=== PATIENT | female | born 1990 | race Caucasian/White ===

== ENCOUNTER → 2016-06-11 | Outpatient (CLI) | payer OTHER ==
[2016-06-11 15:18] LABS: HEMATOCRIT 37.4 % (37.0-47.0); HEMOGLOBIN 12.5 g/dL (12.0-16.0); MEAN CORPUSCULAR HEMOGLOBIN 29.8 PG (27-31); MEAN CORPUSCULAR HGB CONC 33.4 g/dL (33-37); MEAN PLATELET VOLUME 10.1 FL (7.4-12.2); RDW COEFFICIENT OF VARIATION 12.3 % (11.5-14.5); RED BLOOD COUNT 4.19 10^6/uL (4.20-5.40)
[2016-06-11 15:40] LABS: ASPARTATE AMINO TRANSFERASE 21 IU/L (8-39); BILIRUBIN,TOTAL 0.5 mg/dL (0.3-1.2); BLOOD UREA NITROGEN 6 mg/dL (7-22); BUN/CREATININE RATIO 8.57 (6-20); CALCIUM 8.8 mg/dL (8.7-10.7); CHLORIDE 103 meq/L (98-112); CREATININE 0.7 mg/dL (0.50-1.20); EST GLOMERULAR FILTRATION > 60 (>60 ml/min/1.73m(2)); GLUCOSE 65 mg/dL (78-110); POTASSIUM 3.6 meq/L (3.8-5.2); SODIUM 137 meq/L (135-145); TOTAL PROTEIN 7.1 g/dL (6.1-8.0)
== END ==
LOC: LAB 15:03
PROVIDERS: ATTEND Family Medicine
DX: O26.892 Other specified pregnancy related conditions, second trimester (principal); R51 Headache; Z3A.26 26 weeks gestation of pregnancy
CPT/HCPCS: 36415; 80053; 84443; 85027

== ENCOUNTER → 2016-06-13 | Outpatient (CLI) | payer OTHER ==
[2016-06-13 09:38] LABS: 24 HOUR URINE PROTEIN CONCENTR 9 mg/dL; 24 HOUR URINE TOTAL VOLUME 1975 ML; 24 HR URINE PROTEIN 177 mg/DAY (42-225)
== END ==
LOC: LAB 08:48
PROVIDERS: ATTEND Family Medicine
DX: O26.892 Other specified pregnancy related conditions, second trimester (principal); R51 Headache; Z3A.26 26 weeks gestation of pregnancy
CPT/HCPCS: 84156

== ENCOUNTER → 2016-06-22 | Outpatient (CLI) | payer OTHER | LOC: LAB 08:06 | PROVIDERS: ATTEND Family Medicine | DX: Z36 Encounter for antenatal screening of mother (principal); Z3A.28 28 weeks gestation of pregnancy | CPT/HCPCS: 36415; 82950 ==

== ENCOUNTER → 2016-08-12 | Outpatient (CLI) | payer OTHER | LOC: MOB LAB 10:16 | PROVIDERS: ATTEND Family Medicine | DX: Z36 Encounter for antenatal screening of mother (principal); Z3A.36 36 weeks gestation of pregnancy | CPT/HCPCS: 87150 ==

== ENCOUNTER 2016-08-19 11:12 | Outpatient (CLI) | payer OTHER ==
[2016-08-19] MEDS ORDERED: NORMAL SALINE 10 ML SYRINGE FLUSH IVP PRN (11:26)
[2016-08-19 11:51] LABS: HEMATOCRIT 37.2 % (37.0-47.0); HEMOGLOBIN 12.2 g/dL (12.0-16.0); MEAN CORPUSCULAR HEMOGLOBIN 29.2 PG (27-31); MEAN CORPUSCULAR HGB CONC 32.8 g/dL (33-37); MEAN PLATELET VOLUME 10.9 FL (7.4-12.2); RED BLOOD COUNT 4.18 10^6/uL (4.20-5.40)
[2016-08-19 11:56] VITALS: RESP 20; TEMP 98.3
[2016-08-19 12:01] LABS: BLOOD UREA NITROGEN 9 mg/dL (7-22); BUN/CREATININE RATIO 12.85 (6-20); CALCIUM 9.3 mg/dL (8.7-10.7); EST GLOMERULAR FILTRATION > 60 (>60 ml/min/1.73m(2)); SERUM ALBUMIN 3.6 g/dL (3.5-4.8); URIC ACID 4.8 mg/dl (2.5-6.2)
--- NOTE | 2016-08-21 12:07 | PDOC(PROG) ---
Intake - - Reason for Visit/Chief Complaint: Other Additional Reason(s) for Visit: high blood pressure Admitted From: Physician Office - Estimated Due Date: 09/09/16 Gestational Age in Weeks and Days: 37 Weeks and 2 Days : 1 Para: 0 Living Children: 1 - Labs Blood Type and Rh: A+ Group B Strep: Negative Maternal - Vital Signs Last Taken Vital Signs: Vital Signs - Last Taken Temperature 98.3 F 08/19/16 11:15 Pulse Rate Respiratory Rate 20 08/19/16 11:10 Blood Pressure 117/77 08/19/16 12:00 Pulse Ox - Uterine Activity Uterine Contraction Monitor Mode: External Uterine Contraction Pattern: Absent - Cervical Exam Cervical Dilation (cm): 2-3 Cervical Effacement Percentage: 70 Station: -2 Exam Performed By: Dr. Soni - Vaginal Discharge Vaginal Bleeding Amount: None Monitoring - Uterine Activity Uterine Contraction Monitor Mode: External Uterine Contraction Pattern: Absent Results - Labs CBC and BMP: 08/19/16 11:42 08/19/16 11:42 - Bedside Testing Bedside Urine Ketone: Negative Bedside Urine Leukocytes Esterase: Moderate Bedside Urine Nitrite: Negative Bedside Urine Occult Blood: Negative Bedside Urine Protein: Negative Bedside Specific [place]: 1.010 Assessment and Plan - Patient Problems (1) Gestational hypertension affecting first Status: Acute
== END 2016-08-19 13:05 | disposition home or self-care (01) ==
LOC: OBOP 11:12
PROVIDERS: ATTEND Family Medicine
DX: O13.3 Gestational [pregnancy-induced] hypertension without significant proteinuria, third trimester (principal); Z3A.37 37 weeks gestation of pregnancy
CPT/HCPCS: 36415; 59025; 80053; 81003; 83615; 84550; 85025; 99211

== ENCOUNTER → 2016-08-20 | Outpatient (CLI) | payer OTHER ==
[2016-08-23 07:54] LABS: 24 HOUR URINE TOTAL VOLUME 1900 ML
== END ==
LOC: LAB 07:54
PROVIDERS: ATTEND Family Medicine
DX: O13.3 Gestational [pregnancy-induced] hypertension without significant proteinuria, third trimester (principal); Z3A.37 37 weeks gestation of pregnancy
CPT/HCPCS: 84156

== ENCOUNTER 2016-08-21 10:02 | Outpatient (CLI) | payer OTHER ==
[2016-08-21 10:19] VITALS: RESP 18; TEMP 97.6
--- NOTE | 2016-08-25 12:25 | PDOC(PROG) ---
Intake - - Reason for Visit/Chief Complaint: NST Admitted From: Home - LMP: 11/29/15 Estimated Due Date: 09/09/16 Gestational Age in Weeks and Days: 37 Weeks and 6 Days : 1 Para: 0 Living Children: 1 - Labs Blood Type and Rh: A+ Group B Strep: Negative Hepatitis B Surface Antigen: Absent HIV: Negative Rubella Status: Immune VDRL/RPR: Absent Maternal - Vital Signs Last Taken Vital Signs: Vital Signs - Last Taken Temperature 97.6 F 08/21/16 10:13 Pulse Rate 99 08/21/16 10:13 Respiratory Rate 18 08/21/16 10:13 Blood Pressure 123/85 08/21/16 10:13 Pulse Ox 100 08/21/16 10:13 - Uterine Activity Uterine Contraction Monitor Mode: None Contraction Frequency(minutes): x1 Contraction Duration (seconds): 50 - Vaginal Discharge Vaginal Bleeding Amount: None Vaginal Discharge Amount: None Monitoring - Uterine Activity Uterine Contraction Monitor Mode: None Contraction Frequency(minutes): x1 Contraction Duration (seconds): 50 Results - Bedside Testing Bedside Urine Ketone: Negative Bedside Urine Leukocytes Esterase: Small Bedside Urine Nitrite: Negative Bedside Urine Occult Blood: Moderate Bedside Urine Protein: Trace Bedside Specific [place]: 1.025 Assessment and Plan - Patient Problems (1) Gestational hypertension affecting first Status: Acute
== END 2016-08-21 11:00 | disposition home or self-care (01) ==
LOC: OBOP 10:02
PROVIDERS: ATTEND Family Medicine
DX: O13.3 Gestational [pregnancy-induced] hypertension without significant proteinuria, third trimester (principal); Z3A.37 37 weeks gestation of pregnancy
CPT/HCPCS: 59025; 81003; 99211

== ENCOUNTER 2016-08-25 10:46 | Outpatient (CLI) | payer OTHER ==
[2016-08-25 11:57] VITALS: RESP 16; TEMP 97.8
[2016-08-25 12:08] LABS: HEMATOCRIT 39.2 % (37.0-47.0); MEAN CORPUSCULAR HEMOGLOBIN 29.5 PG (27-31); MEAN CORPUSCULAR HGB CONC 33.2 g/dL (33-37); MEAN CORPUSCULAR VOLUME 88.9 FL (81-99); MEAN PLATELET VOLUME 11.2 FL (7.4-12.2); RED BLOOD COUNT 4.41 10^6/uL (4.20-5.40)
--- NOTE | 2016-08-25 12:41 | DI ---
US OB , LIMITED,08/25/2016 11:00 AM: Clinical History: -induced hypertension in the third trimester. Previous Exam: None at this facility. Findings: Multiple grayscale and color Doppler sonographic images are obtained through the pelvis, and demonstr ate a normal amniotic fluid index measuring 19.9 cm. Umbilical Doppler ultrasound reveals an SD ratios of between 2.1 and 3.3. Estimated gestational age was determined by a composite of biparietal diameter, head circumference, a bdominal circumference and femur length yielding an estimated gestational age by ultrasound of 38 wee ks 3 days. Estimated weight is 3267 g (56 percentile). Detected Doppler heart tones measured 136 beats per minute. Impression: A single live intrauterine gestation with size equal to dates. SD ratio measures between 2.1 and 3.3.
[2016-08-25 12:55] LABS: BLOOD UREA NITROGEN 11 mg/dL (7-22); BUN/CREATININE RATIO 15.71 (6-20); CALCIUM 9.2 mg/dL (8.7-10.7); EST GLOMERULAR FILTRATION > 60 (>60 ml/min/1.73m(2)); SERUM ALBUMIN 3.8 g/dL (3.5-4.8); URIC ACID 4.9 mg/dl (2.5-6.2)
== END 2016-08-25 13:08 | disposition home or self-care (01) ==
LOC: US 10:46
PROVIDERS: ATTEND Family Medicine
DX: O13.3 Gestational [pregnancy-induced] hypertension without significant proteinuria, third trimester (principal); Z3A.38 38 weeks gestation of pregnancy
CPT/HCPCS: 36415; 59025; 76815; 80053; 81003; 83615; 84550; 85025; 99211

== ENCOUNTER 2016-08-28 10:12 | Outpatient (CLI) | payer OTHER ==
[~2016-08-28 10:12] MED LIST: NORMAL SALINE 10 ML SYRINGE FLUSH IVP PRN
[2016-08-28 10:14] VITALS: RESP 18; TEMP 97.6
== END 2016-08-28 10:53 | disposition home or self-care (01) ==
LOC: OBOP 10:12
PROVIDERS: ATTEND Family Medicine
DX: O13.3 Gestational [pregnancy-induced] hypertension without significant proteinuria, third trimester (principal); Z3A.38 38 weeks gestation of pregnancy
CPT/HCPCS: 59025; 81003; 99211

== ENCOUNTER 2016-09-01 10:28 | Outpatient (CLI) | payer OTHER ==
[2016-09-01] MEDS ORDERED: NORMAL SALINE 10 ML SYRINGE FLUSH IVP PRN (10:31)
[2016-09-01 10:41] VITALS: RESP 16; TEMP 98
[2016-09-01 10:45] LABS: HEMATOCRIT 37.4 % (37.0-47.0); HEMOGLOBIN 12.4 g/dL (12.0-16.0); MEAN CORPUSCULAR HEMOGLOBIN 29.5 PG (27-31); MEAN CORPUSCULAR HGB CONC 33.2 g/dL (33-37); MEAN CORPUSCULAR VOLUME 88.8 FL (81-99); RED BLOOD COUNT 4.21 10^6/uL (4.20-5.40)
[2016-09-01 10:54] LABS: BLOOD UREA NITROGEN 10 mg/dL (7-22); BUN/CREATININE RATIO 14.28 (6-20); CALCIUM 9.2 mg/dL (8.7-10.7); EST GLOMERULAR FILTRATION > 60 (>60 ml/min/1.73m(2)); SERUM ALBUMIN 3.6 g/dL (3.5-4.8); URIC ACID 4.4 mg/dl (2.5-6.2)
--- NOTE | 2016-09-02 09:11 | DI ---
US OB , LIMITED,09/01/2016 10:32 AM: Clinical History: Gestational hypertension Previous Exam: None at this facility. Findings: Multiple grayscale and color Doppler sonographic images are obtained through the pelvis demonstrating a normal amniotic fluid index (17.4 cm). Detected Doppler heart tones measure 140 beats per minute. Impression: 1. Single live intrauterine gestation with normal amniotic fluid index
== END 2016-09-01 11:40 | disposition home or self-care (01) ==
LOC: OBOP 10:28
PROVIDERS: ATTEND Family Medicine
DX: O13.3 Gestational [pregnancy-induced] hypertension without significant proteinuria, third trimester (principal); Z3A.38 38 weeks gestation of pregnancy
CPT/HCPCS: 59025; 76815; 80053; 81003; 83615; 84550; 85025; 99211

== ENCOUNTER 2016-09-02 04:24 | Inpatient (IN) | payer OTHER ==
[2016-09-02] MEDS ORDERED: NALOXONE 0.4 MG/1 ML VIAL IVP PRN ×2 (04:36→10:00)
[2016-09-02] MEDS ORDERED: Metoclopramide Inj 10 MG/2 ML VIAL IV PRN (04:36)
[2016-09-02] MEDS ORDERED: Famotidine Inj 20 MG in Normal Saline Flush 10 ML IVP PRN ×4 (04:36)
[2016-09-02] MEDS ORDERED: fentaNYL Inj 100 MCG/2 ML VIAL IV PRN (04:36)
[2016-09-02] MEDS ORDERED: TERBUTALINE SULFATE 1 MG/1 ML SDV SUBCUT PRN (04:36)
[2016-09-02] MEDS ORDERED: NORMAL SALINE 10 ML SYRINGE FLUSH IVP PRN ×2 (04:36→17:31)
[2016-09-02] MEDS ORDERED: CALCIUM CARBONATE 500 MG (TUMS) CHEWABLE TABLET PO PRN ×2 (04:36→17:31)
[2016-09-02] MEDS ORDERED: METHYLERGONOVINE MALEATE 0.2 MG/1 ML VIAL IM PRN (04:36)
[2016-09-02] MEDS ORDERED: ePHEDrine Inj 5 MG in Normal Saline Flush 1 ML IVP PRN ×2 (04:36→10:00)
[2016-09-02] MEDS ORDERED: ONDANSETRON 4 MG/2 ML VIAL IVP PRN ×2 (04:36→17:31)
[2016-09-02] MEDS ORDERED: Carboprost Inj 250 MCG/ML AMP IM PRN ×2 (04:36→17:31)
[2016-09-02] MEDS ORDERED: Nalbuphine Inj 20 MG/ML Ampule IVP PRN ×3 (04:36→17:31)
[2016-09-02] MEDS ORDERED: Phenylephrine Inj 50 MCG in Normal Saline Flush 0.5 ML IVP PRN ×2 (04:36→10:00)
[2016-09-02] MEDS ORDERED: LIDOCAINE W/ SODIUM BICARB 0.5 ML SYR SUBD PRN (04:36)
[2016-09-02] MEDS ORDERED: MISOPROSTOL 200 MCG TABLET RECTAL PRN (04:36)
[2016-09-02] MEDS ORDERED: BUTORPHANOL TARTRATE 2 MG/1 ML VIAL IVP PRN ×2 (04:36→10:00)
[2016-09-02] MEDS ORDERED: CITRIC ACID/SODIUM CITRATE 30 ML CUP PO PRN (04:36)
[2016-09-02] MEDS ORDERED: Naloxone Inj 0.01 MG in Normal Saline Flush 1 ML IVP PRN ×2 (04:36→10:00)
[2016-09-02] MEDS ORDERED: Lidocaine 1% 10 MG/ML - 20 ML VIAL SUBCUT PRN (04:36)
[2016-09-02] MEDS ORDERED: diphenhydrAMINE 50 MG/1 ML VIAL IVP PRN ×3 (04:36→17:31)
[2016-09-02] MEDS ORDERED: CefOXitin Inj 2 GM in Sodium Chloride 0.9% 100 ML IV PRN (04:36)
[2016-09-02] MEDS ORDERED: OXYTOCIN 10 UNIT/1 ML IM PRN (04:36)
[2016-09-02] MEDS ORDERED: Oxytocin 20 Units + LR 1,000 ML IV SCH ×3 (04:45→17:31)
[2016-09-02] MEDS: Lactated Ringers-OB Dept 1,000 ML PRIMARY IV SCH ×3 (05:30→13:23)
[2016-09-02 05:59] LABS: HEMATOCRIT 37.4 % (37.0-47.0); HEMOGLOBIN 12.3 g/dL (12.0-16.0); MEAN CORPUSCULAR HEMOGLOBIN 29.1 PG (27-31); MEAN CORPUSCULAR HGB CONC 32.9 g/dL (33-37); MEAN CORPUSCULAR VOLUME 88.4 FL (81-99); RED BLOOD COUNT 4.23 10^6/uL (4.20-5.40)
[2016-09-02] MEDS ORDERED: Fent/Bupiv 2mcg/0.0625% Epid 250 ML ONE (09:08)
[2016-09-02] MEDS ORDERED: fentaNYL 2 MCG/BUPIVACAINE 0.0625%/NS 0.9% 250 ML BAG EPIDURAL ONE (10:01)
--- NOTE | 2016-09-02 10:08 | CRNA.PROCE ---
Central Neuraxis Block Placesc - - Safety Measures: Site Verified - - Type of Block: Epidural (Requested labor analgesia; induction of labor. E natals unremarkable. platelets 286k. allergy to acetominophen only.) Reason for Block: Analgesia Moniters Used During Block: SPO2, NIBP (Sitting Membranes were ruptured by Dr. Soni. Fluid clear. Pt allowed to go to restroom just prior to Epidural placement.) Positioning: Sitting Skin Prep Used: Betadine (Times 3) Draped: Yes Skin Infiltration - Enter Amount Used in Comment Field: 1% Xylocaine (mL): Yes ( 1.0) Spinal Needle Used: 18 Hustead 80 mm (Epidural space times one. OSKAR with saline. No parasthesia with catheter placement and little resistance.) Local Anesthetic - Enter Amount Used in Comment Field: 1.5 % Xylocaine with Epinephrine 1:200,000 (mL): Yes (4 ml at 923) Number of Centimeters Catheter Threaded: 3.5 Bioclusive Dressing Applied: Yes (Skin prep under all adhesive.) - - Additional Details: Pt reports warmth from test dose equally right and left on toes/buttocks. Infusion of 0.0625% Bupivicaine with 2 mcgs fentanyl per ml at 14 ml per hour via pump started at 943. # scenarios discusssed with pt. Pts mother and present at this discussion.
--- NOTE | 2016-09-02 15:44 | OB.PROGRES ---
Interval History: Called to see patient for possible uterine inversion with delivery of the placenta. Upon bimanual examination, uterine inversion was palpated. Suprapubic pressure was applied to the ELVIRA with the left hand while the right hand was used to revert the uterine fundus and remove retained membranes. Brisk bleeding was encountered with the inversion, but good hemostasis was achieved with reversion. The patient had excellent epidural anesthesia and tolerated the procedure well. Objective - Labs CBC and BMP: 09/02/16 05:45 Labs - Last 24 Hours: Laboratory Results 09/02/16 Range/Units 05:45 WBC 9.62 (4.8-10.8) 10^3/uL RBC 4.23 (4.20-5.40) 10^6/uL Hgb 12.3 (12.0-16.0) g/dL Hct 37.4 (37.0-47.0) % MCV 88.4 (81-99) FL MCH 29.1 (27-31) PG MCHC 32.9 L (33-37) g/dL RDW Std Deviation 39.2 (39-50) fL RDW Coeff of [place] 12.4 (11.5-14.5) % Plt Count 286 (140-350) 10*3/uL MPV 11.0 (7.4-12.2) FL - Vital Signs Last Taken Vital Signs: Vital Signs - Last Taken Temperature 97.7 F 09/02/16 11:00 Pulse Rate 74 09/02/16 11:00 Respiratory Rate 20 09/02/16 11:00 Blood Pressure 134/88 09/02/16 11:00 Pulse Ox 98 09/02/16 11:00
[2016-09-02] MEDS ORDERED: OXYTOCIN 10 UNIT/1 ML IM ONE (17:31)
[2016-09-02] MEDS ORDERED: MISOPROSTOL 200 MCG TABLET RECTAL ONE (17:31)
[2016-09-02] MEDS ORDERED: oxyCODONE IR Tab 5 MG TAB PO PRN (17:31)
[2016-09-02] MEDS ORDERED: DIPH,PERTUSS,TET(ADACEL) VAC/PF 0.5 ML (Tdap) IM SCH (17:31)
[2016-09-02] MEDS ORDERED: BENZOCAINE/MENTHOL SPRAY 56 GM BOTTLE TOPICAL PRN (17:31)
[2016-09-02] MEDS ORDERED: GLYCERIN/WITCH HAZEL 1 BOX TOPICAL PRN (17:31)
[2016-09-02] MEDS ORDERED: CefOXitin Inj 2 GM in Sodium Chloride 0.9% 100 ML IV ONE (17:31)
[2016-09-02] MEDS ORDERED: LANOLIN HPA 40 GM TUBE TOPICAL PRN (17:31)
[2016-09-02] MEDS ORDERED: Methylergonovine Tab 0.2 MG TAB PO PRN (17:31)
[2016-09-02] MEDS ORDERED: Ondansetron ODT Tab 4 MG TAB PO PRN (17:31)
[2016-09-02] MEDS ORDERED: diphenhydrAMINE 25 MG CAPSULE PO PRN (17:31)
[2016-09-02] MEDS ORDERED: Lactated Ringers-OB Dept 1,000 ML ONE (18:28)
[2016-09-02] MEDS: Lactated Ringers 1,000 ML PRIMARY IV SCH (18:50)
[2016-09-02 20:57] LABS: HEMATOCRIT 30.2 % (37.0-47.0); HEMOGLOBIN 9.9 g/dL (12.0-16.0); MEAN CORPUSCULAR HEMOGLOBIN 29.2 PG (27-31); MEAN CORPUSCULAR HGB CONC 32.8 g/dL (33-37); MEAN CORPUSCULAR VOLUME 89.1 FL (81-99); RED BLOOD COUNT 3.39 10^6/uL (4.20-5.40)
[2016-09-02] MEDS: DOCUSATE 100 MG CAPSULE PO SCH (21:29)
[2016-09-02] MEDS: IBUPROFEN 800 MG TABLET PO PRN (21:29)
--- NOTE | 2016-09-02 23:02 | OB.DEL.SUM ---
Delivery Note Delivery Summary: Pt is a 26 yo G1 at 39 0/7 weeks by early /s who presented today for induction secondary to gestational hypertension. Her cervix was 4/90/-2 on admit. Pitocin augmentation was started. Pt underwent amniotomy with clear fluid at approximately 0845 and an epidural was placed shortly thereafter. Her cervix was 5/90/-1 at 1045. She was completely dilated and 0 station around 1400 and began to push a short time later. She delivered a viable female over an intact perineum. The nose and mouth were suctioned with a bulb suction, the cord was doubly clamped by myself and cut by the father of the baby. The was handed off to the waiting nurses. Cord blood and cord gases were obtained for analysis. Time of delivery was 151. The placenta appeared to be somewhat adherent to the uterine wall initially, but with gentle traction and uterine massage per the nurse, the placenta came down to the introitus. Because I did not feel it release, I felt up along the left side of the uterus and felt what appeared to be the placenta firmly adhered to the uterine wall, which had inverted down, I believe, though the cervix. I immediately asked the nurse to open up the pt's IVF and summon Dr. Aceves for assistance. I did not attempt to remove the placenta any further at that point. Dr. Aceves arrived a short time later. While he was getting gowned and gloved, I noted that the placenta appeared to have pulled away from the uterus. It was placed in a basin and will be sent to pathology. It appeared to be completely intact. I did a quick vaginal check of the uterus and it did not have the normal shape and I could not palpate the cervix. By this time, Dr Aceves was gowned and gloved. For details of his exam and intervention, please see the note elsewhere in the pt's chart. After the uterus was reverted, the pt's vital signs remained very stable and she was asymptomatic except for feeling somewhat crampy. The vagina and perineum were then examined and a first degree supra-urethral laceration was noted, as well as a small, second degree vaginal laceration. The vaginal laceration was repaired in the normal fashion with 3-0 vicryl rapide suture. For the supraurethral laceration, a red rubber catheter was placed first with sterile technique. The first degree laceration was then repaired in the normal fashion with 3-0 vicryl rapide suture. There was excellent hemostasis. The pt and baby tolerated delivery well and the pt tolerated the reversion of her uterus well with minimal discomfort thanks to her epidural. EBL 1000 cc. Apgars were 8 at 1 minute and 8 at 5 minutes. Baby weighed 6#9oz and was 19.75 inches long. Both mom and baby are in stable condition at this time.
[2016-09-03] MEDS: Lactated Ringers 1,000 ML PRIMARY IV SCH ×2 (02:11→13:18)
[2016-09-03 05:51] VITALS: RESP 18
[2016-09-03 07:22] LABS: HEMATOCRIT 25.1 % (37.0-47.0); HEMOGLOBIN 8.1 g/dL (12.0-16.0); MEAN CORPUSCULAR HEMOGLOBIN 29.2 PG (27-31); MEAN CORPUSCULAR HGB CONC 32.3 g/dL (33-37); MEAN CORPUSCULAR VOLUME 90.6 FL (81-99); MEAN PLATELET VOLUME 10.3 FL (7.4-12.2); RED BLOOD COUNT 2.77 10^6/uL (4.20-5.40)
[2016-09-03] MEDS: IBUPROFEN 800 MG TABLET PO PRN ×2 (08:03→16:10)
[2016-09-03] MEDS: DOCUSATE 100 MG CAPSULE PO SCH ×2 (09:51→20:49)
[2016-09-03] MEDS: FERROUS GLUCONATE 324 MG TABLET PO SCH ×3 (09:51→20:49)
[2016-09-03] MEDS: Prenatal Multivitamin Tab 1 TAB TAB PO SCH (09:51)
--- NOTE | 2016-09-03 11:40 | DI ---
US PELVIC LIMITED (NON-OB),09/03/2016 10:52 AM: Clinical History: Uterine inversion. Previous Exam: None at this facility. Findings: Multiple transabdominal grayscale and color Doppler sonographic images are obtained through the pelvi s, and demonstrate a normal-appearing urinary bladder. The uterus measures 19.8 x 12.7 x 8.8 cm without any contour abnormalities. The endometrium appears n ormal and homogeneous. There is prominent uterine vessels. Impression: Normal uterus.
--- NOTE | 2016-09-03 13:26 | CRNA.PROGR ---
Anesthesia Note Anesthesia Progress Note: Rests quietly and arouses easily. Has been ambulatory ad trisha. No questions or concerns regarding anesthetic care. Laboratory Results 09/02/16 09/02/16 09/03/16 Range/Units 05:45 20:54 07:00 WBC 9.62 18.40 H 13.00 H (4.8-10.8) 10^3/uL RBC 4.23 3.39 L 2.77 L (4.20-5.40) 10^6/uL Hgb 12.3 9.9 L 8.1 L (12.0-16.0) g/dL Hct 37.4 30.2 L 25.1 L (37.0-47.0) % MCV 88.4 89.1 90.6 (81-99) FL MCH 29.1 29.2 29.2 (27-31) PG MCHC 32.9 L 32.8 L 32.3 L (33-37) g/dL RDW Std Deviation 39.2 38.3 L 38.8 L (39-50) fL RDW Coeff of [place] 12.4 12.2 12.3 (11.5-14.5) % Plt Count 286 285 223 (140-350) 10*3/uL MPV 11.0 11.0 10.3 (7.4-12.2) FL Blood Type A POSITIVE Antibody Screen Negative Vital Signs (24 hrs) Temp Pulse Pulse Resp BP BP BP 09/03/16 08:48 98.2 F 95 18 114/67 09/03/16 08:12 99 09/03/16 05:30 98.2 F 108 H 18 126/87 09/03/16 04:00 98 F 102 H 16 127/76 09/03/16 02:12 98 20 129/64 09/02/16 22:05 98.4 F 85 18 125/85 09/02/16 21:00 114 H 09/02/16 20:05 98.5 F 114 H 20 145/95 09/02/16 18:44 86 18 133/80 09/02/16 18:00 98.1 F 109 H 20 122/79 09/02/16 17:10 109 H 20 137/91 09/02/16 16:55 114 H 20 116/91 09/02/16 16:09 91 18 142/75 09/02/16 16:00 106 H 18 136/75 09/02/16 15:50 108 H 20 138/79 09/02/16 15:46 89 20 136/65 09/02/16 15:32 124 H 20 126/65 09/02/16 15:27 105 H 20 142/79 09/02/16 15:13 98.1 F 09/02/16 15:00 Pulse Ox 09/03/16 08:48 98 09/03/16 08:12 09/03/16 05:30 97 09/03/16 04:00 98 09/03/16 02:12 97 09/02/16 22:05 98 09/02/16 21:00 09/02/16 20:05 98 09/02/16 18:44 97 09/02/16 18:00 98 09/02/16 17:10 99 09/02/16 16:55 98 09/02/16 16:09 99 09/02/16 16:00 98 09/02/16 15:50 98 09/02/16 15:46 96 09/02/16 15:32 98 09/02/16 15:27 97 09/02/16 15:13 09/02/16 15:00 100
[2016-09-04] MEDS: IBUPROFEN 800 MG TABLET PO PRN ×2 (00:24→09:42)
[2016-09-04 08:38] VITALS: TEMP 98.2
[2016-09-04 08:44] LABS: HEMATOCRIT 23.8 % (37.0-47.0); HEMOGLOBIN 7.7 g/dL (12.0-16.0); MEAN CORPUSCULAR HEMOGLOBIN 29.6 PG (27-31); MEAN CORPUSCULAR HGB CONC 32.4 g/dL (33-37); MEAN CORPUSCULAR VOLUME 91.5 FL (81-99); MEAN PLATELET VOLUME 10.5 FL (7.4-12.2); RED BLOOD COUNT 2.6 10^6/uL (4.20-5.40)
[2016-09-04] MEDS: FERROUS GLUCONATE 324 MG TABLET PO SCH (09:43)
[2016-09-04] MEDS: DOCUSATE 100 MG CAPSULE PO SCH (09:43)
[2016-09-04] MEDS: Prenatal Multivitamin Tab 1 TAB TAB PO SCH (09:44)
--- NOTE | 2016-09-09 17:17 | OB.PROGRES ---
Subjective Post Day: 1 Pain Management: PO Zee Catheter: No Flatus: Yes Diet: Regular [place] Feeding Method: Exculsively Ambulating: Yes Concerns / Additional Information: Very minimal lochia today. Objective - General General Appearance: POSITIVE: No Acute Distress, Cooperative - Cardiovacular Cardiovascular Exam: POSITIVE: RRR, No Murmur Edema: +2 Pedal Edema Extremities: Negative Janie's - Bilaterally - Respiratory Respiratory Exam: POSITIVE: Clear to Auscultation - Bilaterally - Fundus/Lochia/Perineum Uterus Consistency: Firm Uterus Position: POSITIVE: Below Umbilicus Assesstment / Plan (1) Gestational hypertension affecting first Status: Acute (2) Uterine inversion Status: Acute Assessment / Plan: -routine cares. -ordered pelvic u/s to look at uterus and ensure that the contour of the fundus of the uterus is normal and the doppler flow is normal. -breast feeding going well. -rubella immune. -rh positive. -d/c home tomorrow if things continue to go well.
--- NOTE | 2016-09-09 17:52 | DCSUMMARY ---
Hospitalization Summary Admit Date: 09/02/16 Discharge Date: 09/04/16 Primary Diagnosis:: Gestational Hypertension Delivery Type: Vaginal Exam - Vitals Vital Signs: Vital Signs Temperature 98.2 F Temperature Source Oral Pulse Rate [Apical] 82 Pulse Rate [Pulse Oximeter] 86 Pulse Rate 77 Respiratory Rate [Vaginal 22 Pressure] Respiratory Rate [Contractions 20 ] Respiratory Rate 18 Blood Pressure [Right Arm] 122/82 Blood Pressure [Left Arm] 127/79 Blood Pressure 133/80 Pulse Ox 97 Oxygen Delivery Method Room Air Height 5 ft 8.5 in Weight 187 lb Patient Problems - Patient Problem List (1) Gestational hypertension affecting first Status: Acute (2) Uterine inversion Status: Acute
== END 2016-09-04 10:30 | disposition home or self-care (01) | DRG 775 ==
LOC: OBIP 04:56
PROVIDERS: ADMIT Family Medicine; ATTEND Family Medicine
PROC: 10E0XZZ Delivery of Products of Conception, External Approach (ICD-10-PCS; principal; 2016-09-02)
PROC: 0KQM0ZZ Repair Perineum Muscle, Open Approach (ICD-10-PCS; 2016-09-02)
DX: O71.5 Other obstetric injury to pelvic organs (principal); Z37.0 Single live birth; O71.4 Obstetric high vaginal laceration alone; Z3A.39 39 weeks gestation of pregnancy
CPT/HCPCS: 36415; 76857; 81003; 85027; 86850; 86900; 86901; J2001; J2405; J3490; J7050; J7120

== ENCOUNTER 2018-06-05 21:42 | Inpatient (IN) ==
[2018-06-05] MEDS ORDERED: OXYTOCIN 10 UNIT/1 ML IM PRN (22:11)
[2018-06-05] MEDS ORDERED: Metoclopramide Inj 10 MG/2 ML VIAL IV PRN (22:11)
[2018-06-05] MEDS ORDERED: fentaNYL Inj 100 MCG/2 ML VIAL IV PRN (22:11)
[2018-06-05] MEDS ORDERED: TERBUTALINE SULFATE 1 MG/1 ML SDV SUBCUT PRN (22:11)
[2018-06-05] MEDS ORDERED: Carboprost Inj 250 MCG/ML AMP IM PRN (22:11)
[2018-06-05] MEDS ORDERED: CITRIC ACID/SODIUM CITRATE 30 ML CUP PO PRN (22:11)
[2018-06-05] MEDS ORDERED: NALOXONE 0.4 MG/1 ML VIAL IVP PRN (22:11)
[2018-06-05] MEDS ORDERED: BUTORPHANOL TARTRATE 2 MG/1 ML VIAL IVP PRN (22:11)
[2018-06-05] MEDS ORDERED: METHYLERGONOVINE MALEATE 0.2 MG/1 ML VIAL IM PRN (22:11)
[2018-06-05] MEDS ORDERED: LIDOCAINE W/ SODIUM BICARB 0.5 ML SYR SUBD PRN (22:11)
[2018-06-05] MEDS ORDERED: MISOPROSTOL 200 MCG TABLET RECTAL PRN (22:11)
[2018-06-05] MEDS ORDERED: CALCIUM CARBONATE 500 MG (TUMS) CHEWABLE TABLET PO PRN (22:11)
[2018-06-05] MEDS ORDERED: Lidocaine 1% 10 MG/ML - 20 ML VIAL SUBCUT PRN (22:11)
[2018-06-05] MEDS ORDERED: CefOXitin Inj 2 GM in Sodium Chloride 0.9% 100 ML IV PRN (22:11)
[2018-06-05] MEDS ORDERED: Phenylephrine Inj 50 MCG in Sodium Chloride 0.9% vial 0.5 ML IVP PRN (22:11)
[2018-06-05] MEDS ORDERED: FAMOTIDINE 20 MG/2 ML VIAL IVP PRN ×2 (22:11)
[2018-06-05] MEDS ORDERED: diphenhydrAMINE 50 MG/1 ML VIAL IVP PRN (22:11)
[2018-06-05] MEDS ORDERED: LIDOCAINE HCL 2 % 10 ML JELLY URO-JECT TOPICAL PRN (22:11)
[2018-06-05] MEDS ORDERED: ePHEDrine Inj 50 MG/ML AMP IVP PRN (22:11)
[2018-06-05] MEDS ORDERED: Naloxone Inj 0.01 MG in Sodium Chloride 0.9% vial 1 ML IVP PRN (22:11)
[2018-06-05] MEDS ORDERED: ONDANSETRON 4 MG/2 ML VIAL IVP PRN (22:11)
[2018-06-05] MEDS ORDERED: Oxytocin 20 Units + LR 20 UNIT/1,000 ML BAG IV SCH (22:15)
[2018-06-05 22:39] LABS: Hematocrit [HCT] 38.2 % (37.0-47.0); Hemoglobin [HGB] 12.4 g/dL (12.0-16.0); MEAN CORPUSCULAR HEMOGLOBIN 28.4 PG (27-31); MEAN CORPUSCULAR HGB CONC 32.5 g/dL (33-37); MEAN CORPUSCULAR VOLUME 87.4 FL (81-99); MEAN PLATELET VOLUME 10.7 FL (7.4-12.2); RED BLOOD COUNT 4.37 10^6/uL (4.20-5.40)
[2018-06-05] MEDS: Lactated Ringers-OB Dept 1,000 ML PRIMARY IV SCH (22:53)
[2018-06-05 23:32] LABS: BLOOD UREA NITROGEN 8 mg/dL (7-22); BUN/CREATININE RATIO 13.33 (6-20); SERUM ALBUMIN 3.8 g/dL (3.5-4.8); Uric Acid 4.7 mg/dl (2.5-6.2)
--- NOTE | 2018-06-06 01:36 | CRNA.PROGR ---
Anesthesia Time - Procedure/Recovery Time Start Date: 06/06/18 Anesthesia : Time In: 01:05 Anesthesia : Time Out: 12:25 - Other Height: 5 ft 8.5 in Physical Status: P2 Anesthesia Type: Epidural Obstetrics: Planned vaginal delivery w/ neuraxial labor anesthesia/analog
--- NOTE | 2018-06-06 01:36 | CRNA.PROCE ---
Central Neuraxis Block Placemt - - Safety Measures: Time Out Taken - - Type of Block: Epidural Reason for Block: Analgesia Moniters Used During Block: SPO2, NIBP Positioning: Sitting Skin Prep Used: ChloroPrep Draped: Yes Skin Infiltration - Enter Amount Used in Comment Field: 1% Xylocaine (mL): Yes (SKIN WHEAL) Spinal Needle Used: 18 Hustead 80 mm Local Anesthetic - Enter Amount Used in Comment Field: 1.5 % Xylocaine with Epinephrine 1:200,000 (mL): Yes (5ML) Number of Centimeters Catheter Threaded: 4 Bioclusive Dressing Applied: Yes Anesthesia Time - Other Height: 5 ft 8.5 in
[2018-06-06] MEDS ORDERED: fentaNYL 2 MCG/BUPIVACAINE 0.0625%/NS 0.9% 250 ML BAG EPIDURAL SCH (01:45)
[2018-06-06] MEDS: Lactated Ringers-OB Dept 1,000 ML PRIMARY IV SCH ×2 (02:30→08:10)
[2018-06-06] MEDS: Nalbuphine Inj 20 MG/ML Ampule IVP PRN ×2 (03:52→07:00)
[2018-06-06] MEDS ORDERED: Oxytocin 20 Units + LR 20 UNIT/1,000 ML BAG IV SCH ×2 (08:00→13:27)
--- NOTE | 2018-06-06 10:51 | OB.PROGRES ---
Date of Service: 06/06/18 Time of Service: 10:46 Interval History: Pt is a 28 yo at 37 3/7 weeks who presented yesterday evening to labor and delivery complaining of contractions. She was seen earlier in the day for possible leakage of amniotic fluid and decreased movement. Her amnisure was negative at that time. NST was reactive; she was braulio every 5-10 minutes but not really feeling them. She was discharged home. When she presented to labor and delivery last noc, she was braulio about every 2-4 minutes, but not feeling them. Denied any vaginal bleeding or gushes of fluid. Baby had been moving a little more normally. She did have a mild SIN, but denied any vision disturbances, RUQ pain or increased edema. She labored through the night. An epidural was placed for analgesia early this morning. Today, she reports that she is feeling well. Denies SIN, vision changes, RUQ pain. Her blood pressures, which were in the 150/90s, came down nicely after her epidural. She is feeling a little bit of pelvic pressure. Objective - Cervical Exam Cervical Exam: 8/100/0. AROM completed with return of a moderate amount of clear fluid. [place]: every 2-4 minutes, palpating moderate Heart Rate: 120-130, moderate variability, occasional small variables. Heart Rate Interpretation Category: Category I - Labs CBC and BMP: 06/05/18 22:24 06/05/18 22:24 - Vital Signs Last Taken Vital Signs: Vital Signs - Last Taken Temperature 98.3 F 06/05/18 22:30 Pulse Rate 89 06/06/18 09:36 Respiratory Rate 18 06/06/18 09:36 Blood Pressure 131/83 06/06/18 09:36 Pulse Ox 98 06/06/18 09:36 Assessment and Plan - Patient Problems (1) Labor established Current Visit: Yes Status: Acute - Assessment / Plan Additional Assessment/Plan Details: -AROM completed as above with return of clear fluid. -GBS negative. -has excellent pain relief with her epidural. -anticipate normal vaginal delivery.
[2018-06-06] MEDS ORDERED: diphenhydrAMINE 25 MG CAPSULE PO PRN (13:27)
[2018-06-06] MEDS ORDERED: DIPH,PERTUSS,TET(ADACEL) VAC/PF 0.5 ML (Tdap) IM ONE (13:27)
[2018-06-06] MEDS ORDERED: BENZOCAINE/MENTHOL SPRAY 56 GM BOTTLE TOPICAL PRN (13:27)
[2018-06-06] MEDS ORDERED: ONDANSETRON 4 MG/2 ML VIAL IVP PRN (13:27)
[2018-06-06] MEDS ORDERED: diphenhydrAMINE 50 MG/1 ML VIAL IVP PRN (13:27)
[2018-06-06] MEDS ORDERED: CALCIUM CARBONATE 500 MG (TUMS) CHEWABLE TABLET PO PRN (13:27)
[2018-06-06] MEDS ORDERED: Nalbuphine Inj 20 MG/ML Ampule IVP PRN (13:27)
[2018-06-06] MEDS ORDERED: LIDOCAINE HCL 2 % 10 ML JELLY URO-JECT TOPICAL PRN (13:27)
[2018-06-06] MEDS ORDERED: GLYCERIN/WITCH HAZEL 1 BOX TOPICAL PRN (13:27)
[2018-06-06] MEDS ORDERED: LANOLIN HPA 40 GM TUBE TOPICAL PRN (13:27)
[2018-06-06] MEDS ORDERED: Ondansetron ODT Tab 4 MG TAB PO PRN (13:27)
--- NOTE | 2018-06-06 14:13 | OB.DEL.SUM ---
Delivery Note Delivery Summary: Pt is a 28 yo G2 now P2 at 37 3/7 weeks by first trimester u/s, who presented to labor and delivery last noc with contractions that were non-painful. Her cervix was checked and she was found to be 5 cm. Her GBS was negative. She was admitted. She progressed to 6-7 cm on her own and then stayed at that dilation for around 6 hours. Pitocin augmentation was started since baby was still a little bit high in the pelvis. When I checked the pt at 1000, she was 8/100/-2 initially and then after AROM, the baby descended to 0 station and was well applied to the cervix. She was complete around 1120 and pushed over a couple of pushes to deliver a viable female over an intact perineum. Baby's nose and mouth were suctioned with the bulb suction and she was placed on mom's chest. Cord clamping was delayed for approximately 50 seconds. The cord was then doubly clamped by myself and cut by the father of the baby. Cord blood and cord gases were obtained. A small perineal laceration was noted and repaired with a running stitch of 3-0 vicryl rapide suture while awaiting the delivery of the placenta. The placenta was felt to be at the cervical os but did not release with gentle traction on the umbilical cord. Because of the pt's history of a previous uterine inversion with delivery of the placenta, I called Dr. Aceves and asked him to evaluate. With traction on the cord, and support on the lower uterine segment, the placenta delivered intact. 20 mU of pitocin were then infused wide open initially and then backed off to 500 cc/hr. There was minimal vaginal bleeding. The baby was having retractions and oxygen need and was transferred to the nursery for bubble CPAP. Apgars were 8 at 1 minute and 8 at 5 minutes, both off for color. Baby weighed 6#6oz. Both mom and baby are in stable condition at the current time. - Patient Problems (1) Labor established Current Visit: Yes Status: Acute
[2018-06-06] MEDS ORDERED: Lidocaine Inj 1% 20 ML ONE (16:25)
[2018-06-06] MEDS: DOCUSATE 100 MG CAPSULE PO SCH (21:52)
[2018-06-06] MEDS: IBUPROFEN 800 MG TABLET PO PRN (21:52)
[2018-06-07 05:00] LABS: Hematocrit [HCT] 31.7 % (37.0-47.0); Hemoglobin [HGB] 9.8 g/dL (12.0-16.0); MEAN CORPUSCULAR HEMOGLOBIN 27.7 PG (27-31); MEAN CORPUSCULAR HGB CONC 30.9 g/dL (33-37); MEAN CORPUSCULAR VOLUME 89.5 FL (81-99); MEAN PLATELET VOLUME 11.1 FL (7.4-12.2); RED BLOOD COUNT 3.54 10^6/uL (4.20-5.40)
[2018-06-07] MEDS: IBUPROFEN 800 MG TABLET PO PRN ×3 (06:00→21:21)
[2018-06-07] MEDS: DOCUSATE 100 MG CAPSULE PO SCH ×2 (08:59→21:47)
[2018-06-07] MEDS ORDERED: Prenatal Multivitamin Tab 1 TAB TAB PO SCH (09:00)
--- NOTE | 2018-06-07 12:39 | OB.PROGRES ---
Subjective Post Day: 1 Pain Management: PO Zee Catheter: No Flatus: Yes Scant < 10 ml Diet: Regular [place] Feeding Method: Exculsively Ambulating: Yes Concerns / Additional Information: No bowel movement yet. Mild lochia. Objective - General General Appearance: POSITIVE: No Acute Distress, Cooperative - Cardiovacular Cardiovascular Exam: POSITIVE: RRR, Systolic Murmur (2/6 systolic ejection murmur) Edema: +1 Pedal Edema Extremities: Negative Janie's - Bilaterally - Respiratory Respiratory Exam: POSITIVE: Clear to Auscultation - Bilaterally, Breathing Non Labored - Abdomen Bowel Sounds: Present Assesstment / Plan (1) Labor established Current Visit: Yes Status: Acute (2) Normal vaginal delivery Current Visit: Yes Status: Acute Assessment / Plan: -normal cares. -will start iron for mild anemia. -motrin prn pain. -rh positive. -currently pumping breast milk as baby is npo due to respiratory issues. H opefully will be able to start nursing later today. -rubella immune. -d/c today, will stay as guest status as long as is in the critical care nursery.
[2018-06-07] MEDS ORDERED: IBUPROFEN 800 MG TABLET PO ONE (21:12)
[2018-06-07 21:42] VITALS: BP 138/86; RESP 18; TEMP 98.2; O2SAT 99
== END 2018-06-07 21:51 | disposition home or self-care (01) | DRG 776 ==
LOC: OBOP 21:42 → OBIP 22:18
PROVIDERS: ADMIT Family Medicine; ATTEND Family Medicine